=== PATIENT | female | born 1970 | race Two or more races ===

== ENCOUNTER 2018-04-27 13:42 | Day surgery (SDC) | END 2018-04-27 16:59 | disposition home or self-care (01) ==

== ENCOUNTER → 2018-04-30 | Outpatient (CLI) | END | disposition home or self-care (01) ==

== ENCOUNTER 2019-03-04 11:49 | Emergency (ER) | payer BC ==
[~2019-03-04] VITALS: Ht 154.9 cm; Wt 66.8 kg
[~2019-03-04 11:49] MED LIST: ACET500C5 PO; MECL12.574 PO; ONDA4TAB14 PO; levothyroxine; omeprazole
[2019-03-04 11:55] VITALS: Ht 154.9 cm; Wt 66.8 kg
[2019-03-04] MEDS ORDERED: ONDANSETRON 4 MG INJ IV STA (12:16)
[2019-03-04] MEDS ORDERED: SOD CHLORIDE 0.9% 1,000 ML IV STA (12:16)
[2019-03-04] MEDS ORDERED: MECLIZINE 12.5 MG TAB PO ONE (12:30)
[2019-03-04 14:45] VITALS: BP 152/92; PULSE 66; RESP 16
== END 2019-03-04 14:45 | disposition home or self-care (01) ==
LOC: FTE 11:49
DX: H81.10 Benign paroxysmal vertigo, unspecified ear (principal); R51 Headache
CPT/HCPCS: 36415; 80053; 81003; 83690; 84484; 84703; 85025; 93005; 96361; 96374; 99284; J2405; J7030